=== PATIENT | female | born 1980 | race Caucasian/White ===

== ENCOUNTER 2018-12-18 22:12 | Emergency (ER) | payer MEDICAID, OTHER ==
[2018-12-18 22:13] VITALS: BMI 19.1
[2018-12-18 22:39] VITALS: BP 121/84; PULSE 109; RESP 20; TEMP 98.9; O2SAT 95
--- NOTE | 2018-12-18 22:51 | C.PDOC ---
History Of Present Illness 38 year old female presents to the ED c/o right knee pain. Patient reports while trying to open a window at home, she slammed her right knee causing her pain. Patient's secondary complaint is bilateral forearm itchy rash. Patient denies fever, chills, SOB, wheezing, facial swelling, weakness, numbness. Time Seen by Provider: 12/18/18 22:48 Chief Complaint (Nursing): Lower Extremity Problem/Injury History Per: Patient History/Exam Limitations: no limitations Onset/Duration Of Symptoms: Hrs Current Symptoms Are (Timing): Still Present Recent travel outside of the [place]: No Additional History Per: Patient - Knee Description Of Injury: Struck Against Object Past Medical History Reviewed: Historical Data, Nursing Documentation, Vital Signs Vital Signs: Last Vital Signs Temp 98.9 F 12/18/18 22:35 Pulse 109 H 12/18/18 22:35 Resp 20 12/18/18 22:35 BP 121/84 12/18/18 22:35 Pulse Ox 95 12/18/18 22:35 Primary Care Provider: FAMILY PROVIDER,NO - Medical History PMH: Fractures (recent left ankle fracture) Surgical History: No Surg Hx - [facility] Procedures APPLICATION OF SPLINT (12/14/13) TETANUS TOXOID ADMINIST (12/14/13) Family History: States: Unknown Family Hx - Social History Hx Tobacco Use: Yes Hx Alcohol Use: No Hx Substance Use: No - Immunization History Hx Tetanus Toxoid Vaccination: Yes Hx Influenza Vaccination: No Hx Pneumococcal Vaccination: No Review Of Systems Constitutional: Negative for: Fever, Chills, Weakness ENT: Negative for: Mouth Swelling, Throat Swelling Respiratory: Negative for: Cough, Shortness of Breath Gastrointestinal: Negative for: Vomiting, Diarrhea Musculoskeletal: Positive for: Leg Pain Skin: Positive for: Rash Neurological: Negative for: Weakness, Numbness Physical Exam - Physical Exam Appears: Well, Non-toxic, No Acute Distress Skin: Normal Color, Warm, Dry, Rash (bilateral forearms, papular, dry excoriated skin) Head: Atraumatic, Normacephalic Eye(s): bilateral: Normal Inspection, PERRL, EOMI Ear(s): Bilateral: Normal (no drainage) Nose: Normal Oral Mucosa: Moist Tongue: No Swelling Lips: No Swelling Throat: Normal (no swelling or injection), No Erythema, No Exudate, Other (airway patent) Neck: Normal ROM, Supple Chest: Symmetrical Respiratory: No Accessory Muscle Use, Other (normal inspiratory effot) Back: Other (upright steady gait) Extremity: Normal ROM (with pain on flexion and extension of right knee), Tenderness (anterior aspect right knee, with joint effusion ), Capillary Refill (< 2 seconds), No Swelling Pulses: Left Dorsalis Pedis: Normal, Right Dorsalis Pedis: Normal Neurological/Psych: Oriented x3, Normal Speech ED Course And Treatment O2 Sat by Pulse Oximetry: 95 (ON RA) Pulse Ox Interpretation: Normal Medical Decision Making Medical Decision Making: Plan: * Benadryl 25 mg PO * Motrin 800 mg PO * Tramadol 50 mg PO * Prednisone 60 mg PO * Right knee X-Ray Adolfo wrap applied to knee Disposition Counseled Patient/Family Regarding: Studies Performed, Diagnosis, Need For Followup, Rx Given - Disposition Referrals: Bob Marlow MD [Staff Provider] - Disposition: HOME/ ROUTINE Disposition Time: 00:22 Condition: STABLE Prescriptions: Ibuprofen [Motrin Tab] 600 mg PO TID #21 tab traMADol [Ultram] 50 mg PO BID PRN #10 tab PRN Reason: Pain, Severe (8-10) Triamcinolone 0.025 % [Triamcinolone 0.025 % Cream] 1 appl EXT BID #80 gm Instructions: Eczema (Atopic Dermatitis) (DC), Knee Pain (DC) Forms: General Discharge Instructions, [facility] ([place]), Work Excuse - Clinical Impression Clinical Impression: Knee pain, acute, Eczema - PA / POLICY WRITER TYPIST / Resident Statement MD/DO has reviewed & agrees with the documentation as recorded. - Scribe Statement The provider has reviewed the documentation as recorded by the Scribe Hu Caputo All medical record entries made by the Scribe were at my direction and personally dictated by me. I have reviewed the chart and agree that the record accurately reflects my personal performance of the history, physical exam, [facility] decision making, and the department course for this patient. I have also personally directed, reviewed, and agree with the discharge instructions and disposition.
--- NOTE | 2018-12-19 08:41 | RAD ---
Date of service: 12/19/2018 PROCEDURE: Right Knee Radiographs. HISTORY: injury COMPARISON: None. TECHNIQUE: 2 views obtained. FINDINGS: BONES: No fracture. Spurring present JOINTS: Arthrosis suggested JOINT EFFUSION: None. OTHER FINDINGS: None. IMPRESSION: Fracture appreciated. Spurring/osteoarthrosis suggested Along with the spurring-tiny concomitant loose bodies would be difficult to exclude
== END 2018-12-19 00:26 | disposition home or self-care (01) ==
LOC: C.ER 22:12
DX: M25.561 Pain in right knee (principal); L30.9 Dermatitis, unspecified; Z72.0 Tobacco use